=== PATIENT | male | born 1955 | race Caucasian/White ===

== ENCOUNTER 2016-05-12 09:03 | Emergency (ER) | payer MEDICARE, BC ==
[2016-05-12] MEDS ORDERED: Lidocaine 1% 5ml(IM or SUTURE)(PAIN CLINIC) ONE (09:47)
[2016-05-12] MEDS ORDERED: Lidocaine 1% 5ml(IM or SUTURE)(PAIN CLINIC) IJ ONE (09:48)
[2016-05-12] MEDS ORDERED: SODIUM BICARBONATE 2.4 MEQ VIAL INJ ONE ×2 (09:48→09:49)
[2016-05-12] MEDS ORDERED: KETOROLAC TROMETHAMINE 60 MG/2 ML VIAL IM ONE (10:00)
[2016-05-12] MEDS ORDERED: NALBUPHINE HCL 10 MG/1 ML IM ONE (10:00)
--- NOTE | 2016-05-12 10:19 | ED Physician Documentation ---
Fall - HISTORIAN Historian: patient - HPI Stated Complaint: Fall Chief Complaint: Fall Onset: just prior to arrival Where: home Context: slipped (on ice) r: moderate Associated Symptoms:: no loss of consciousness Location of Pain/Injury: R shoulder, lower extremity, other (elbow) Injury to Right Extremity: arm Injury to Left Extremity: hip Further Comments: yes (60 year old male patient brought in via EMS after falling on the ice. Patient steps he slipped down 3 steps. Complaints of right hip pain, right elbow laceration and right shoulder pain. Denies LOC, denies neck pain.) - ROS CONST: no problems NEURO: denies: dizziness, anxiety MS/SKIN/LYMPH: denies: weakness, numbness, neck pain, back pain EYES/ENT: none CVS/RESP: none GI/: denies: nausea, vomiting - PAST HX Past History: other (Lung transplant, GERD) Allergies/Adverse Reactions: Allergies Allergy/AdvReac Type Severity Reaction Status Date / Time No Known Drug Allergies Allergy Verified 05/12/16 09:14 Home Medications: Ambulatory Orders Medication Instructions Recorded Acyclovir [Acyclovir] 200 mg PO BID 04/05/14 Calcium Carb 500Mg [Tums] 500 mg PO BID 04/05/14 Mycophenolate Mofetil [Cellcept] 1,000 mg PO Q12H 04/05/14 Omeprazole 20 mg PO DAILY 04/05/14 Sulfamethoxazole/Trimethoprim 1 each PO MOWEFR 04/05/14 [Bactrim DS] Tacrolimus [Prograf] 3 mg PO PM 04/05/14 Tacrolimus [Prograf] 4 mg PO AM 04/05/14 Zolpidem Tartrate [Ambien] 5 mg PO HS PRN 04/05/14 predniSONE [Deltasone] 10 mg PO DAILY 04/05/14 Baclofen 10 mg PO TID PRN #21 tablet 11/07/14 Amoxicillin/Potassium Clav 1 each PO Q12H 10 Days 08/23/15 [Augmentin 875-125 Tablet] metroNIDAZOLE [Flagyl] 500 mg PO Q6H 10 Days 08/23/15 traMADol HCL [Ultram] 50 mg PO Q4H PRN #20 tablet 08/23/15 Mupirocin [Bactroban] 1 appl TP BID #1 tube 05/12/16 - SOCIAL HX Smoking History: non-smoker - FAMILY HX Family History: none, no significant history - VITAL SIGNS Vital Signs: Vital Signs Temp Pulse Resp BP Pulse Ox 98.1 F 84 18 135/76 96 05/12/16 09:05 05/12/16 09:05 05/12/16 09:05 05/12/16 09:05 05/12/16 09:05 - REVIEWED ASSESSMENTS Nursing Assessment Reviewed: Yes Vitals Reviewed: Yes Procedures Wound Location: other (right elbow) Wound's Depth, Shape: linear (3 cm) Wound Explored: no foreign body removed Irrigated w/ Saline (ccs): 300 Betadine Prep?: No (chlorhexidine) Anesthesia: 1% Lidocaine (with neut) Suture Size/Type: 4:0 Number of Sutures: 5 Layer Closure?: No Sterile Dressing Applied?: Yes Progress: Patient tolerated well, edges well approximated. Reviewed discharge instructions with patient, verbalized understanding. ED Results Lab/Radiology - Radiology Radiology Impressions: Right hip 2 views Clinical history: Trauma, history of fall No visible fractures, dislocation or bone destruction. No soft tissue calcifications. Impression: Normal right hip - Orders Orders: ED Orders Category Date Time Status Apply/change dressing NOW Care 05/12/16 09:49 Active Cleanse with NS and Chlorhexid 1T Care 05/12/16 09:49 Active RT HIP 2VIEW COMPLETE [RAD] Stat Exams 05/12/16 Taken Ketorolac Tromethamine [Toradol] Med 05/12/16 10:00 Discontinued 60 mg IM NOW ONE Lidocaine 1% 5ml(IM or SUTURE) [Xylocaine] Med 05/12/16 09:47 Discontinued 50 mg .ROUTE .STK-MED ONE Lidocaine 1% 5ml(IM or SUTURE) [Xylocaine] Med 05/12/16 09:48 Discontinued 50 mg IJ NOW ONE Nalbuphine HCl [Nubain] Med 05/12/16 10:00 Discontinued 10 mg IM NOW ONE Sodium Bicarbonate [Neut] Med 05/12/16 09:49 Discontinued 2.4 meq INJ .STK-MED ONE Sodium Bicarbonate [Neut] Med 05/12/16 09:48 Discontinued 2.4 meq INJ NOW ONE Fall Physical Exam - Physical Exam General Appearance: moderate distress Head: non-tender, no swelling, no obvious injury Neck: non-tender, painless ROM, trachea midline Eye: TAY, EOMI, lids & conjunct. nml Resp/CVS: chest non-tender, no ecchymosis, breath sounds nml, no resp. distress , heart sounds nml Abdomen: soft, no organomegaly, normal bowel sounds, no abdominal bruit, no distension Neuro: oriented x3, CN's nml as tested, sensation nml, motor nml, mood/affect nml, hr internship nml, reflexes nml, hr internship symmetrical Skin: color nml, no rash, nml palp., dry, other (laceration 3cm to right elbow) Extremities: atraumatic, pelvis stable, hips non-tender, no pedal edema, nml ROM , nml color/temp, other (no ecchymosis or obvious injury noted to right hip or right shoulder. No shortening or rotation of right leg. ) Joint: joints nml, nml ROM, Nml gait/weight bearing - Myriam Coma Score Eyes Open: Spontaneous Speech: Oriented Motor: Obeys Commands Discharge Clincal Impression: History of lung transplant, Fall (on) (from) other stairs and steps, initial encounter Laceration of elbow Qualifiers: Encounter type: initial encounter Laterality: right Qualified Code(s): S51.011A - Laceration without foreign body of right elbow, initial encounter Contusion of right hip, initial encounter Qualifiers: Encounter type: initial encounter Qualified Code(s): S70.01XA - Contusion of right hip, initial encounter Prescriptions: Mupirocin [Bactroban] 1 appl TP BID #1 tube Referrals: Ck Raya MD [Primary Care Provider] - 2 Days Additional Instructions: Diagnosis: Fall Hip contusion Elbow laceration Keep the wound clean and dry until it has healed. You can wash or shower after 24 hours. Do not soak the wound in water and make sure it is dry afterwards (gently pat the area dry with a clean towel). To remove your dressing, gently pull it off. If needed, you can dampen it with water then gently pull it off. Clean the laceration twice a day with hibiclens and rinse with water clean away any scabbed area Apply thin coat of antibiotic ointment after cleaning the wound. Cover with non-adherent bandage if able. If bandages or dressings get wet, they will need to be changed. Call your doctor for any signs of symptom of infection redness, drainage, pain. Have your stitches removed at your doctors office in 7-10 days. Discharged with bactroban ointment apply a thin coat twice a day. Home Medications: Ambulatory Orders Acyclovir [Acyclovir] 200 mg PO BID 04/05/14 Calcium Carb 500Mg [Tums] 500 mg PO BID 04/05/14 Mycophenolate Mofetil [Cellcept] 1,000 mg PO Q12H 04/05/14 Omeprazole 20 mg PO DAILY 04/05/14 Sulfamethoxazole/Trimethoprim [Bactrim DS] 1 each PO MOWEFR 04/05/14 Tacrolimus [Prograf] 3 mg PO PM 04/05/14 Tacrolimus [Prograf] 4 mg PO AM 04/05/14 Zolpidem Tartrate [Ambien] 5 mg PO HS PRN 04/05/14 predniSONE [Deltasone] 10 mg PO DAILY 04/05/14 Baclofen 10 mg PO TID PRN #21 tablet 11/07/14 Amoxicillin/Potassium Clav [Augmentin 875-125 Tablet] 1 each PO Q12H 10 Days metroNIDAZOLE [Flagyl] 500 mg PO Q6H 10 Days 08/23/15 traMADol HCL [Ultram] 50 mg PO Q4H PRN #20 tablet 08/23/15 Mupirocin [Bactroban] 1 appl TP BID #1 tube 05/12/16 Condition: Stable Disposition: 01 HOME, SELF-CARE Decision to Admit: NO Decision Time: 10:15
[2016-05-12 10:26] VITALS: BP 130/68
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
== END 2016-05-12 10:25 | disposition home or self-care (01) ==
LOC: ED 09:03
DX: S51.011A Laceration without foreign body of right elbow, initial encounter (principal); S70.01XA Contusion of right hip, initial encounter; W00.0XXA Fall on same level due to ice and snow, initial encounter; Y93.9 Activity, unspecified; Y99.9 Unspecified external cause status
CPT/HCPCS: 73502; J1885; J2300; 12002; 96372; 99283; 99284

== ENCOUNTER 2016-08-31 12:10 | Outpatient (CLI) | payer MEDICARE, BC | END 2016-08-31 12:11 | LOC: LAB 12:10 | PROVIDERS: ATTEND Internal Medicine Pulmonary Disease | DX: Z51.81 Encounter for therapeutic drug level monitoring (principal); Z79.899 Other long term (current) drug therapy; Z94.2 Lung transplant status | CPT/HCPCS: 36415 ==

== ENCOUNTER 2016-11-23 15:11 | Emergency (ER) | payer BC, MEDICARE ==
[2016-11-23] MEDS: KETOROLAC TROMETHAMINE 60 MG/2 ML VIAL IM ONE (16:18)
[2016-11-23] MEDS: ORPHENADRINE CITRATE 60 MG/2ML IM ONE (16:18)
[2016-11-23 16:33] LABS: BASOPHILS % 0.9 (0.0-1.5); MEAN CORPUSCULAR HEMOGLOBIN 31.8 pg (28.0-34.0); MEAN CORPUSCULAR VOLUME 92.3 fl (80.0-100.0); MONOCYTES % 4.6 % (0.0-11.0); NEUTROPHILS # 5.9 # k/uL (1.4-7.7)
[2016-11-23 16:48] LABS: eGFR (African) > 60; eGFR (Non-African) > 60
[2016-11-23] MEDS: HYDROmorphone HCL/PF 1 MG/ML DISP.SYRIN IM ONE (18:04)
[2016-11-23 18:41] LABS: APPEARANCE,URINE Clear (CLEAR); COLOR,URINE Yellow (YELLOW); OCCULT BLOOD,URINE Negative (NEGATIVE); PH URINE 5.5 (5.0 - 8.0); UROBILINOGEN URINE 0.2 Eu (0.2-1.0)
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
[2016-11-23 21:40] VITALS: BP 153/82
== END 2016-11-23 19:40 | disposition home or self-care (01) ==
LOC: ED 15:11
DX: S63.502A Unspecified sprain of left wrist, initial encounter (principal); V89.2XXA Person injured in unspecified motor-vehicle accident, traffic, initial encounter; Y93.9 Activity, unspecified; Y99.9 Unspecified external cause status
CPT/HCPCS: 36415; 70450; 71250; 72125; 73090; 74176; 80053; 81002; 85025; J1170; J1885; J2360; L3908; 96372; 99283

== ENCOUNTER 2016-11-30 10:47 | Outpatient (CLI) | payer OTHER, MEDICARE, BC ==
--- NOTE | 2016-11-30 14:06 | Diagnostic Imaging Report ---
KANDY ALTAMIRANO [facility] [place] [facility] [address] [facility] [address] Report Submission Date: Nov 30, 2016 12:18:06 PM CDT Patient Study Name: DENNIS TAYLOR Date: Nov 30, 2016 10:49:30 AM CDT Modality Type: CR Gender: M Description: SHOULDER : 55 Institution: [facility] [place] [facility] Physician: KANDY ALTAMIRANO Examination: Plain film shoulder History: Discomfort Comparison exams: None provided Findings: 3 views of the shoulder demonstrate normal cortical margins. No evidence for fracture or dislocation. Acromioclavicular degenerative changes. Old 4th rib fracture. No soft tissue abnormality. Impression: Acromioclavicular degenerative changes. No acute osseous process. Suspect ligamentous/soft tissue injury, recommend obtaining MRI. Electronically signed on Nov 30, 2016 12:18:06 PM CDT by: Morgan MARTIN
== END 2016-11-30 10:50 ==
LOC: RAD 10:47
PROVIDERS: ATTEND Family Medicine
DX: M25.512 Pain in left shoulder (principal)
CPT/HCPCS: 73030

== ENCOUNTER 2017-02-11 10:02 | Outpatient (CLI) | payer MEDICARE, BC | END 2017-02-11 10:03 | LOC: RT 10:02 | PROVIDERS: ATTEND Family Medicine | DX: T86.819 Unspecified complication of lung transplant (principal); X58.XXXA Exposure to other specified factors, initial encounter; Y93.9 Activity, unspecified; Y99.9 Unspecified external cause status | CPT/HCPCS: 94010 ==

== ENCOUNTER 2017-02-12 12:50 | Outpatient (CLI) | payer MEDICARE, BC | END 2017-02-12 12:52 | LOC: CARD 12:50 | PROVIDERS: ATTEND Internal Medicine Cardiovascular Disease | DX: I47.1 Supraventricular tachycardia (principal) ==

== ENCOUNTER 2017-08-12 17:49 | Emergency (ER) | payer MEDICARE, BC ==
--- NOTE | 2017-08-12 18:01 | ED Physician Documentation ---
Low Back Pain - HISTORIAN Historian: patient - HPI Stated Complaint: back pain Chief Complaint: Upper Back Injury/ Pain History: back pain Onset: hours (2) Duration: continues in ED Recent Injury: No Context: other (just got up from chair and the pain started "terrible" ) Where: home Other Injuries: back Severity: mild Quality: sharp Associated Symptoms: denies: fever, chills, sweating, incontinence, difficulty walking, dizziness, numbness Worsened By:: movement to RT flexion, movement to LT flexion, cough, deep breaths Relieved By: nothing Further Comments: yes (He states he went to stand up and he noticed "terrible pain" . No loss of control of bowel or bladder. He has not taken any meds . He has a history of upper back pain but states only when he was working. No new injury) - ROS CONST: no problems - PAST HX Past History: other (hypothyroidism, afib, DVT, lung transplant. HTN ) Surgeries/Procedures: other (lung transplant ) Immunizations: UTD Allergies/Adverse Reactions: Allergies Allergy/AdvReac Type Severity Reaction Status Date / Time No Known Drug Allergies Allergy Verified 08/12/17 18:06 Home Medications: Ambulatory Orders Medication Instructions Recorded Acyclovir [Acyclovir] 200 mg PO BID 04/05/14 Calcium Carb 500Mg [Tums] 500 mg PO BID 04/05/14 Mycophenolate Mofetil [Cellcept] 1,000 mg PO Q12H 04/05/14 Omeprazole 20 mg PO DAILY 04/05/14 Tacrolimus [Prograf] 3 mg PO PM 04/05/14 Tacrolimus [Prograf] 4 mg PO AM 04/05/14 Zolpidem Tartrate [Ambien] 5 mg PO HS PRN 04/05/14 predniSONE [Deltasone] 10 mg PO DAILY 04/05/14 Baclofen 10 mg PO TID PRN #21 tablet 11/07/14 - SOCIAL HX Smoking History: cigarettes Alcohol Use: none Drug Use: none - FAMILY HX Family History: none - VITAL SIGNS Vital Signs: Vital Signs Temp Pulse Resp BP Pulse Ox 98.0 F 98 H 16 139/79 98 08/12/17 17:49 08/12/17 17:49 08/12/17 17:49 08/12/17 17:49 08/12/17 17:49 - REVIEWED ASSESSMENTS Nursing Assessment Reviewed: Yes Vitals Reviewed: Yes Progress - Progress Progress: 1839 : pain is "good" now - he is laying in bed with no complaints . He states easily moves from supine to sitting with no pain. DG ED Results Lab/Radiology - Radiology Radiology Impressions: Examination: Plain film thoracic spine History: PT STATES SHARP PAIN AFTER STANDING UP TODAY (Hx) Findings: 3 views of the thoracic spine demonstrate normal height. No anterior compression. Scattered osteophytes. No soft tissue abnormalities. Impression: Degenerative changes. No vertebral body compression deformity. Electronically signed on Aug 12, 2017 6:37:50 PM CDT by: Morgan Mondragon - Orders Orders: ED Orders Category Date Time Status T SPINE 3 VIEWS [RAD] Stat Exams 08/12/17 Ordered Ketorolac Tromethamine [Toradol] Med 08/12/17 18:04 Discontinued 60 mg IM NOW ONE methylPREDNISolone ACETATE [Depo-Medrol] Med 08/12/17 18:05 Discontinued 40 mg IM NOW ONE Low Back Pain/Injury - Physical Exam General Appearance: no acute distress, alert EENT: eye inspection normal Neck: non-tender, painless ROM Resp/CVS: chest non-tender, breath sounds nml, heart sounds nml, no resp. distress, reg. rate & rhythm, wheezes (expiratory ) Abdomen: non-tender Back: non-tender, painless ROM, other (tenderness to throacic left side, pain to palpation. Increased pain with left lateral bending. ) Neuro/Psych: oriented x3, motor nml, sensation nml Skin: warm/dry Extremities: non-tender, normal range of motion, no evidence of injury, no edema Discharge Clincal Impression: Thoracic back pain Qualifiers: Chronicity: acute Back pain laterality: left Qualified Code(s): M54.6 - Pain in thoracic spine Referrals: Ck Raya MD [Primary Care Provider] - 2 Days Additional Instructions: 1. Robaxin 750 mg Take 1 by mouth BID X 10 days 2. Naproxen 500 mg take `1 by mouth BID x 10 3. Tramodol 50 mg take 1 by mouth every 12 hours for strong pain 4. Follow up with PCP in 2-4 days 5. Return to ER for uncontrolled pain , loss of control of bowel or bladder or other concerns Condition: Stable Disposition: 01 HOME, SELF-CARE Decision to Admit: NO Date of Decison to Admit: 08/12/17 Decision Time: 18:42
[2017-08-12] MEDS ORDERED: KETOROLAC TROMETHAMINE 60 MG/2 ML VIAL IM ONE (18:04)
[2017-08-12] MEDS ORDERED: methylPREDNISolone ACETATE 40 MG/ML VIAL IM ONE (18:05)
[2017-08-12 18:45] VITALS: BP 133/74
--- NOTE | 2017-08-12 18:53 | Diagnostic Imaging Report ---
SIGIFREDO LENZ [facility] [address] [facility].[address] [address] Report Submission Date: Aug 12, 2017 6:37:50 PM CDT Patient Study Name: DENNIS TAYLOR Date: Aug 12, 2017 6:11:25 PM CDT Modality Type: DX Gender: M Description: SPINE : 55 Institution: [facility] Physician: SIGIFREDO LENZ Examination: Plain film thoracic spine History: PT STATES SHARP PAIN AFTER STANDING UP TODAY (Hx) Findings: 3 views of the thoracic spine demonstrate normal height. No anterior compression. Scattered osteophytes. No soft tissue abnormalities. Impression: Degenerative changes. No vertebral body compression deformity. Electronically signed on Aug 12, 2017 6:37:50 PM CDT by: Morgan MARTIN
== END 2017-08-12 18:44 | disposition home or self-care (01) ==
LOC: ED 17:49
DX: M54.6 Pain in thoracic spine (principal)
CPT/HCPCS: 72072; J1030; J1885; 96372; 99283

== ENCOUNTER 2018-06-02 08:48 | Outpatient (CLI) | payer MEDICARE, BC ==
[2018-06-02 09:28] LABS: EOSINOPHILS % 10.4 % (0.0-6.8); MEAN CORPUSCULAR HEMOGLOBIN 30.9 pg (28.0-34.0); MONOCYTES % 4.6 % (0.0-11.0)
[2018-06-02 09:29] LABS: BASOPHILS % 0.5 (0.0-1.5); NEUTROPHILS # 8.6 # k/uL (1.4-7.7)
[2018-06-02 09:45] LABS: eGFR (Non-African) > 60
--- NOTE | 2018-06-02 09:50 | Diagnostic Imaging Report ---
KANDY ALTAMIRANO [facility] [address] [facility].[address] [address] Report Submission Date: Jun 02, 2018 9:30:10 AM SIGN BUILDER Patient Study Name: DENNIS TAYLOR Date: Jun 02, 2018 9:12:29 AM SIGN BUILDER Modality Type: DX Gender: M Description: CHEST 2VIEW : 55 Institution: [facility] Physician: KANDY ALTAMIRANO Examination: PA and lateral chest. History: Evaluate lung baer. Comparison exam: None available for direct review. Findings: PA and lateral views of the chest demonstrates a normal cardiac and mediastinal silhouette. Vascular calcifications involving the aortic arch. No focal infiltrate. No blunting of the costophrenic margins. Osseous structures are appropriate for age. Impression: No acute appearing pulmonary process. Electronically signed on Jun 02, 2018 9:30:10 AM SIGN BUILDER by: Morgan MARTIN
== END 2018-06-02 09:10 ==
LOC: RT 08:48
PROVIDERS: ATTEND Internal Medicine Pulmonary Disease
DX: Z94.2 Lung transplant status (principal)
CPT/HCPCS: 36415; 71046; 80053; 80197; 85025

== ENCOUNTER 2018-06-06 17:09 | Emergency (ER) | payer MEDICARE, BC ==
--- NOTE | 2018-06-06 17:27 | ED Physician Documentation ---
Neck Injury/Pain - HISTORIAN Historian: patient - HPI Stated Complaint: neck pain Chief Complaint: Neck Pain Additional Information: Patient presents to ED with a week history of left sided neck pain. He denies any injury. Patient reports waking up about a week ago with a stiff neck. He is unable to turn his head to the left. He states by the end of the day his pain and stiffness have resolved, however, today it has been persistent. Dr. Raya was unable to get him into the clinic today. He denies fever, chills or night sweats. Onset: days ago (7) Duration: continues in ED Context: turning Where: home Other Injuries: neck Severity: moderate Quality: sharp Associated Symptoms: denies: fever, chills, headache, weakness, numbness, tingling Exacerbated By: movement of neck Relieved By: remaining still - ROS NEURO/PSYCH: denies: difficulty with speech, anxiety EYES/ENT: denies: problems with vision CVS/RESP: denies: chest pain, shortness of breath, cough CONST: denies: recent illness GI/: denies: nausea, vomiting MS/SKIN/LYMPH: denies: calf pain, leg swelling - PAST HX Past History: other (bilateral lung transplant). denies: compression fracture(s), neck injury Surgeries/Procedures: denies: neck surgery Allergies/Adverse Reactions: Allergies Allergy/AdvReac Type Severity Reaction Status Date / Time No Known Drug Allergies Allergy Verified 08/12/17 18:06 Home Medications: Ambulatory Orders Medication Instructions Recorded Acyclovir 200 mg PO BID 04/05/14 Calcium Carb 500Mg [Tums] 500 mg PO BID 04/05/14 Mycophenolate Mofetil [Cellcept] 1,000 mg PO Q12H 04/05/14 Omeprazole 20 mg PO DAILY 04/05/14 Tacrolimus [Prograf] 3 mg PO PM 04/05/14 Tacrolimus [Prograf] 4 mg PO AM 04/05/14 Zolpidem Tartrate [Ambien] 5 mg PO HS PRN 04/05/14 predniSONE [Deltasone] 10 mg PO DAILY 04/05/14 Baclofen 10 mg PO TID PRN #21 tablet 11/07/14 - SOCIAL HX Smoking History: non-smoker Alcohol Use: none Drug Use: none - FAMILY HX Family History: none - VITAL SIGNS Vital Signs: Vital Signs Temp Pulse Resp BP Pulse Ox 133/74 08/12/17 18:44 - REVIEWED ASSESSMENT Nursing Assessment Reviewed: Yes Vitals Reviewed: Yes ED Results Lab/Radiology - Orders Orders: ED Orders Category Date Time Status Orphenadrine Citrate [Norflex] Med 06/06/18 17:32 Once 60 mg IM NOW ONE methylPREDNISolone SOD SUCC [Solu-MEDROL] Med 06/06/18 17:32 Once 125 mg IM NOW ONE Neck Injury/Pain - Physical Exam General Appearance: no acute distress, alert EENT: nml ENT inspection Neck: decreased ROM (unable to turn head to left ), other (tenderness along left SCM and scalene muscles). No: lymphadenopathy Nexus Criteria: Nexus criteria neg Back: No: vertebral point-tendernes Respiratory: chest non-tender, breath sounds nml CVS: heart sounds nml Abdomen: non-tender, nml bowel sounds Skin: warm/dry, normal color Extremities: non-tender Neuro/Psych: oriented x3, sensation nml, motor nml Discharge Clincal Impression: Muscle spasms of neck Referrals: Ck Raya MD [Primary Care Provider] - 2 Days Additional Instructions: 1. Tylenol as needed for pain 2. Take Baclofen as needed for muscle spasm/pain 3. Apply ice/heat to affected area as needed for comfort 4. Gentle stretching twice daily. 5. Follow up with PCP within 1 week 6. Return to ED for new or worsening symptoms. Disposition: 01 HOME, SELF-CARE Decision to Admit: NO Date of Decison to Admit: 06/06/18 Decision Time: 17:40
[2018-06-06] MEDS ORDERED: methylPREDNISolone SOD SUCC 125 MG/2 ML VIAL IM ONE (17:32)
[2018-06-06] MEDS ORDERED: ORPHENADRINE CITRATE 60 MG/2 ML ML IM ONE (17:32)
[2018-06-06 18:02] VITALS: BP 156/80
== END 2018-06-06 17:54 | disposition home or self-care (01) ==
LOC: ED 17:09
DX: M62.838 Other muscle spasm (principal)
CPT/HCPCS: 96372; 99282; 99283; J2360; J2930

== ENCOUNTER 2018-06-30 06:52 | Outpatient (CLI) | payer MEDICARE, BC ==
[2018-06-30 07:22] LABS: MEAN CORPUSCULAR HEMOGLOBIN 30.4 pg (28.0-34.0)
[2018-06-30 07:23] LABS: BASOPHILS % 0.6 (0.0-1.5); EOSINOPHILS % 5.5 % (0.0-6.8); MONOCYTES % 4.9 % (0.0-11.0); NEUTROPHILS # 4.7 # k/uL (1.4-7.7)
[2018-06-30 07:38] LABS: eGFR (Non-African) > 60
== END 2018-06-30 06:54 ==
LOC: RT 06:52
PROVIDERS: ATTEND Internal Medicine Pulmonary Disease
DX: Z94.2 Lung transplant status (principal)
CPT/HCPCS: 36415; 80053; 80197; 85025; 94010

== ENCOUNTER 2018-08-04 10:51 | Outpatient (CLI) | payer MEDICARE, BC | END 2018-08-04 10:56 | disposition home or self-care (01) | LOC: RT 10:51 | PROVIDERS: ATTEND Internal Medicine Pulmonary Disease | DX: Z94.2 Lung transplant status (principal) | CPT/HCPCS: 94010 ==

== ENCOUNTER 2019-02-19 10:26 | Outpatient (CLI) | payer MEDICARE, BC ==
[2019-02-19 11:34] LABS: BASOPHILS % 0.3 % (0.0-1.5); NEUTROPHILS # 5.3 # k/uL (1.4-7.7)
[2019-02-19 13:08] LABS: eGFR (Non-African) > 60
[2019-02-19 13:09] LABS: HDL 61 mg/dL (>40)
[2019-02-19 13:33] LABS: A1C 5.4 % (<5.7)
--- NOTE | 2019-02-20 14:24 | Diagnostic Imaging Report ---
[facility] [address] [place] [address] PATIENT: DENNIS TAYLOR : 1955 DATE OF EXAM: 02/19/2019 PATIENT MRN.: [id number] REF. PHYSICIAN: KANDY ALTAMIRANO EXAM: DX-CHEST 2VIEW Page 1 HISTORY: DOUBLE LUNG TRANSPLANT FOLLOW UP X 5 YEARS AGO, PT STATES NO CHEST COMPLAINTS, NON SMOKER. COMPARISON: June 02, 2018. CHEST RADIOGRAPH, FRONTAL AND LATERAL, 4 views: Upper mediastinum: Not widened. Heart: No cardiomegaly. Lungs: No lobar infiltrate, pulmonary edema, pneumothorax or significant effusion. Skeleton: Healed fracture of the left 4th rib posterolaterally. IMPRESSION: No acute thoracic process. Dr. Sandoval MARTIN
--- NOTE | 2019-02-20 14:28 | Diagnostic Imaging Report ---
[facility] [address] [place] [address] PATIENT: DENNIS TAYLOR : 1955 DATE OF EXAM: 02/19/2019 PATIENT MRN.: [id number] REF. PHYSICIAN: KANDY ALTAMIRANO EXAM: DEXA-DEXA Page 1 DUAL ENERGY X-RAY ABSORPTIOMETRY (DXA) A DXA scan was performed on February 19, 2019 using a [employer] densitometer. IMPRESSION: Based on BMD diagnosis is consistent with osteopenia (based on WHO criteria). Fracture risk is moderate. Treatment is advised based upon other risk factors. INDICATION: Long-term prednisone therapy. Technical Quality: Diagnostic Clinical History: HALFWAY DRUG THERAPY, PT STATES HE TAKES PREDNISONE EVERY DAY WELL CALCIUM, NO SURGERIES TO HIPS OR LOW BACK, NO FRACTURES. PT STATES HX OF DOUBLE LUNG TRANSPLANT X5 YEARS AGO RESULTS: Lumbar Spine The BMD measured in the L1-L4 region is 1.329 g/cm2 T-score 0.9 Femoral Neck The BMD measured at the left femoral neck is 0.927 g/cm2 T-score -1.1 The BMD measured at the right femoral neck is 0.923 g/cm2 T-score -1.1 Total Hip The BMD measured at the left total proximal femur is 0.949 g/cm2 T-score -1.1 Follow-up DXA: Consider repeating this study in 1 to 2 years or as clinically indicated to assess bone density change or response to treatment. Dr. Sandoval MARTIN
== END 2019-02-19 10:31 ==
LOC: LAB 10:26
PROVIDERS: ATTEND Family Medicine
DX: E78.00 Pure hypercholesterolemia, unspecified (principal); I10 Essential (primary) hypertension; I82.409 Acute embolism and thrombosis of unspecified deep veins of unspecified lower extremity; T86.819 Unspecified complication of lung transplant; R63.4 Abnormal weight loss; E55.9 Vitamin D deficiency, unspecified; Z94.2 Lung transplant status; Z79.899 Other long term (current) drug therapy
CPT/HCPCS: 36415; 71046; 77080; 80053; 80061; 80197; 82306; 83036; 84439; 84443; 85025; 85610; 85730; 87385; 93005

== ENCOUNTER 2019-02-23 13:18 | Outpatient (CLI) | payer MEDICARE, BC | END 2019-02-23 13:28 | LOC: RT 13:18 | PROVIDERS: ATTEND Family Medicine | DX: Z94.2 Lung transplant status (principal) ==